=== PATIENT | male | born 1965 | race Caucasian/White ===

== ENCOUNTER 2016-08-16 18:54 | Emergency (ER) | payer OTHER ==
[2016-08-16 19:17] VITALS: BP 149/90
[2016-08-16] MEDS ORDERED: Ketorolac 60 MG/2 ML SDV IM ONE (19:25)
[2016-08-16] MEDS ORDERED: Acetaminophen/oxyCODONE 325-5 MG Tab PO ONE (19:25)
[2016-08-16] MEDS ORDERED: cefTRIAXone 1 GM, Lidocaine 1% 2.1 ML IM ONE ×2 (19:26)
[2016-08-16] MEDS ORDERED: Lidocaine 4% Top Soln 4 ML LTA Syringe TOP ONE (19:26)
--- NOTE | 2016-08-16 19:33 | EDM.PDOC ---
ED HPI GENERAL MEDICAL PROBLEM - General Chief Complaint: ENT Problem Stated Complaint: TOOTHACHE Time Seen by Provider: 08/16/16 19:27 Source of Information: Reports: Patient History Limitations: Reports: No Limitations - History of Present Illness INITIAL COMMENTS - FREE TEXT/NARRATIVE: pt has a broken off tooth on the left lower area. The gum is quite swollen but does not look like a abcess that is drainable. The pt is very uncomfortable. Onset: Gradual Duration: Day(s):, Getting Worse Location: Reports: Face, Other ( pt does have swelling on thr left side of his face. ) Associated Symptoms: Reports: Other ( severe pain in left lower jaw. ) Oral/Mouth Pain Score (Numeric/FACES): 9 - Related Data Allergies Allergy/AdvReac Type Severity Reaction Status Date / Time ibuprofen [From Motrin] Allergy Unknown Difficulty Verified 08/16/16 19:06 Breathing morphine Allergy Unknown Swelling Verified 08/16/16 19:06 Home Meds: Home Meds Multivitamin [Multivitamins] 1 each PO DAILY 08/16/16 [History] Past Medical History Cardiovascular History: Reports: [place] Musculoskeletal History: Reports: Fracture Other Musculoskeletal History: fx wrist elbow forearm both lower legs Neurological History: Reports: Head Trauma Psychiatric History: Reports: Addiction Oncologic (Cancer) History: Reports: Non-Hodgkin's Lymphoma - Infectious Disease History Infectious Disease History: Reports: C-Difficile, Measles, Mumps - Past Surgical History HEENT Surgical History: Reports: Other (See Below) Other HEENT Surgeries/Procedures: eye surgery to remove glass. T and A. Uvula removed. Part of back of throat. GI Surgical History: Reports: Bariatric Procedure, Cholecystectomy, Other (See Below) Other GI Surgeries/Procedures: Part of bowel removed. Musculoskeletal Surgical History: Reports: Knee Replacement Social & Family History - Tobacco Use Smoking Status *Q: Current Every Day Smoker Years of Tobacco use: 3 Packs/Tins Daily: 0.5 Used Tobacco, but Quit: No Month Tobacco Last Used: september Second Hand Smoke Exposure: No - Caffeine Use Caffeine Use: Reports: Coffee, Tea Caffeine Use Comment: unable to access - Alcohol Use Days Per Week of Alcohol Use: 0 - Recreational Drug Use Recreational Drug Use: No ED ROS ENT - Review of Systems Review Of Systems: See Below Constitutional: Reports: Decreased Appetite HEENT: Reports: Dental Pain Respiratory: Reports: No Symptoms Cardiovascular: Reports: No Symptoms Endocrine: Reports: No Symptoms GI/Abdominal: Reports: No Symptoms : Reports: No Symptoms Musculoskeletal: Reports: No Symptoms Skin: Reports: No Symptoms ED EXAM, ENT - Physical Exam Exam: See Below Text/Narrative:: pt arrived with severe pain in the left lower gum line. He has a small root that still remains. Exam Limited By: No Limitations General Appearance: Alert, Moderate Distress Ears: Normal TMs Nose: Normal Inspection Mouth/Throat: Dental Abcess, Other (pt has a small root that remains on the left lower area. ) Head: Atraumatic Course - Vital Signs Last Recorded V/S: Last Vital Signs Temp 36.8 C 08/16/16 19:16 Pulse 85 08/16/16 19:16 Resp 20 08/16/16 19:16 BP 149/90 H 08/16/16 19:16 Pulse Ox 97 08/16/16 19:16 - Orders/Labs/Meds Orders: Active Orders 24 hr Category Date Time Status Lidocaine 4% Top Soln Med 08/16/16 19:26 Once 4 ml TOP ONETIME ONE Medication Orders Lidocaine (Lidocaine 4% Top Soln) 4 ml TOP ONETIME ONE Stop: 08/16/16 19:27 Meds: Medications Generic Name Dose Route Start Last Admin Trade Name Freq PRN Reason Stop Dose Admin Lidocaine 4 ml 08/16/16 19:26 Lidocaine 4% Top Soln TOP 08/16/16 19:27 ONETIME ONE Discontinued Medications Generic Name Dose Route Start Last Admin Trade Name Freq PRN Reason Stop Dose Admin Ceftriaxone Sodium 1 gm/ 0 gm 08/16/16 19:26 Lidocaine HCl 2.1 ml IM 08/16/16 19:27 ONETIME ONE Ketorolac Tromethamine 60 mg 08/16/16 19:25 Toradol IM 08/16/16 19:26 ONETIME ONE Oxycodone/Acetaminophen 1 tab 08/16/16 19:25 Percocet 325-5 Mg PO 08/16/16 19:26 ONETIME ONE - Re-Assessments/Exams Free Text/Narrative Re-Assessment/Exam: 08/16/16 19:32 pt was given torodol and percocet. Because this is a abcess he was given rocephen 1 gm im. 4% lidocaine was applied on a pack and he will also use this for pain relieve. Departure - Departure Time of Disposition: 19:33 Disposition: Home, Self-Care 01 Condition: fair Clinical Impression: Dental abscess - Discharge Information Forms: ED Department Discharge Care Plan Goals: irrigate the mouth frequently to bring the abcess to a head. naprosyn 500mg bid, percocet 5/325 1tab q6h prn for pain, clindomycin 300mg bid, dental appt Friday at [facility]. - My Orders Last 24 Hours: My Active Orders 08/16/16 19:26 Lidocaine 4% Top Soln 4 ml TOP ONETIME ONE - Assessment/Plan Last 24 Hours: My Active Orders 08/16/16 19:26 Lidocaine 4% Top Soln 4 ml TOP ONETIME ONE
[2016-08-16] MEDS ORDERED: Lidocaine 4% Top Soln 50 ML Bottle MUCMEM ONE (19:52)
== END 2016-08-16 20:16 | disposition home or self-care (01) ==
LOC: JP.ED 18:54
DX: K04.7 Periapical abscess without sinus (principal); I25.2 Old myocardial infarction; F17.210 Nicotine dependence, cigarettes, uncomplicated; Z85.72 Personal history of non-Hodgkin lymphomas; Z90.49 Acquired absence of other specified parts of digestive tract; Z98.84 Bariatric surgery status; Z96.659 Presence of unspecified artificial knee joint; Z98.890 Other specified postprocedural states; Z79.899 Other long term (current) drug therapy; Z88.5 Allergy status to narcotic agent; Z88.8 Allergy status to other drugs, medicaments and biological substances
CPT/HCPCS: 96372; 99283; A9270; J0696; J1885

== ENCOUNTER 2019-07-24 20:06 | Emergency (ER) | payer MEDICAID, OTHER ==
[2019-07-24 20:31] VITALS: BP 164/93; PULSE 83
--- NOTE | 2019-07-24 20:31 | EDM.PDOC ---
ED HPI GENERAL MEDICAL PROBLEM - General Chief Complaint: Abdominal Pain Stated Complaint: ABD PAIN,VOMITING Time Seen by Provider: 07/24/19 20:23 Source of Information: Reports: Patient, RN Notes Reviewed History Limitations: Reports: No Limitations - History of Present Illness INITIAL COMMENTS - FREE TEXT/NARRATIVE: 54-year-old gentleman presents emergency department with a complaint of nausea, he has a known history of gastric bypass states his been ill for about 3 days he has been able to drink Gatorade but the nausea is causing troubles hard for him to get food down. No fevers he has had some diarrhea no shortness of breath or chest pain Bilateral Abdominal Pain Score (Numeric/FACES): 4 - Related Data Allergies Allergy/AdvReac Type Severity Reaction Status Date / Time ibuprofen [From Motrin] Allergy Unknown Difficulty Verified 07/24/19 20:13 Breathing morphine Allergy Unknown Swelling Verified 07/24/19 20:13 Home Meds: Home Meds Multivitamin [Multivitamins] 1 each PO DAILY 08/16/16 [History] Past Medical History Cardiovascular History: Reports: CAD, [place] Musculoskeletal History: Reports: Fracture Other Musculoskeletal History: fx wrist elbow forearm both lower legs Neurological History: Reports: Concussion, Head Trauma Psychiatric History: Reports: Addiction Oncologic (Cancer) History: Reports: Non-Hodgkin's Lymphoma - Infectious Disease History Infectious Disease History: Reports: Chicken Pox, Measles, Mumps, Scarlet Fever - Past Surgical History HEENT Surgical History: Reports: Other (See Below) Other HEENT Surgeries/Procedures: eye surgery to remove glass. T and A. Uvula removed. Part of back of throat. GI Surgical History: Reports: Bariatric Procedure, Cholecystectomy, Other (See Below) Other GI Surgeries/Procedures: Part of bowel removed. Musculoskeletal Surgical History: Reports: Knee Replacement Social & Family History - Family History Family Medical History: Noncontributory - Tobacco Use Smoking Status *Q: Current Every Day Smoker Years of Tobacco use: 41 Packs/Tins Daily: 0.5 - Caffeine Use Caffeine Use: Reports: Coffee, Energy Drinks, Soda, Tea Caffeine Use Comment: unable to access - Recreational Drug Use Recreational Drug Use: No ED ROS GENERAL - Review of Systems Review Of Systems: See Below Constitutional: Reports: No Symptoms HEENT: Reports: No Symptoms Respiratory: Reports: No Symptoms Cardiovascular: Reports: No Symptoms GI/Abdominal: Reports: Diarrhea, Nausea, Vomiting. Denies: Abdominal Pain ED EXAM, GI/ABD - Physical Exam Exam: See Below Exam Limited By: No Limitations General Appearance: Alert, WD/WN, No Apparent Distress Respiratory/Chest: No Respiratory Distress, Lungs Clear, Normal Breath Sounds, No Accessory Muscle Use, Chest Non-Tender Cardiovascular: Regular Rate, Rhythm, No Murmur GI/Abdominal Exam: Normal Bowel Sounds, Soft, Non-Tender, No Organomegaly, No Distention, No Mass Course - Vital Signs Last Recorded V/S: Last Vital Signs Temp 97.2 F 07/24/19 20:14 Pulse 83 07/24/19 20:14 Resp 14 07/24/19 20:14 BP 164/93 H 07/24/19 20:14 Pulse Ox 99 07/24/19 20:14 - Orders/Labs/Meds Orders: Active Orders 24 hr Category Date Time Status COMPREHENSIVE METABOLIC PN,CMP [CHEM] Urgent Lab 07/24/19 20:50 Received LACTIC ACID [CHEM] Urgent Lab 07/24/19 20:50 Received TROPONIN I [CHEM] Urgent Lab 07/24/19 20:50 Received UA W/MICROSCOPIC [URIN] Urgent Lab 07/24/19 20:28 Ordered Labs: Laboratory Tests 07/24/19 Range/Units 20:50 WBC 7.2 (4.5-11.0) K/uL RBC 5.21 (4.30-5.90) M/uL Hgb 14.8 (12.0-15.0) g/dL Hct 43.8 (40.0-54.0) % MCV 84 (80-98) fL MCH 28 (27-31) pg MCHC 34 (32-36) % Plt Count 172 (150-400) K/uL Neut % (Auto) 61 (36-66) % Lymph % (Auto) 27 (24-44) % Coles % (Auto) 8 H (2-6) % Eos % (Auto) 4 (2-4) % Baso % (Auto) 0 (0-1) % Meds: Medications Discontinued Medications Generic Name Dose Route Start Last Admin Trade Name Freq PRN Reason Stop Dose Admin Ondansetron HCl 4 mg 07/24/19 20:38 07/24/19 20:45 Zofran Odt PO 07/24/19 20:39 4 mg ONETIME ONE Administration Departure - Departure Time of Disposition: 21:31 Disposition: Home, Self-Care 01 Condition: Fair Clinical Impression: Gastroenteritis - Discharge Information Instructions: Nausea and Vomiting, Adult, [id number] Referrals: PCP,None [Primary Care Provider] - Forms: ED Department Discharge, ED Return to Work/School Form Sepsis Event Note - Evaluation Sepsis Screening Result: No Definite Risk - Focused Exam Vital Signs: Vital Signs Temp Pulse Resp BP Pulse Ox 07/24/19 20:14 97.2 F 83 14 164/93 H 99 Date Exam was Performed: 07/24/19 Time Exam was Performed: 21:29 - My Orders Last 24 Hours: My Active Orders 07/24/19 20:28 UA W/MICROSCOPIC [URIN] Urgent 07/24/19 20:50 COMPREHENSIVE METABOLIC PN,CMP [CHEM] Urgent LACTIC ACID [CHEM] Urgent TROPONIN I [CHEM] Urgent - Assessment/Plan Last 24 Hours: My Active Orders 07/24/19 20:28 UA W/MICROSCOPIC [URIN] Urgent 07/24/19 20:50 COMPREHENSIVE METABOLIC PN,CMP [CHEM] Urgent LACTIC ACID [CHEM] Urgent TROPONIN I [CHEM] Urgent Plan: Assessment Acuity = acute Site and laterality = gastroenteritis Etiology = probably related to foodborne illness Manifestations = nausea and vomiting Location of injury = Home Lab values = CBC unremarkable unfortunately the electrolyte sample was hemolyzed and he declined any further blood work Plan He had good improvement with Zofran provided prescription written for Zofran 4 mg ODT 1 tab p.o. 3 times daily PRN total #10 he will continue to push fluids follow-up primary care 3 to 5 days if not better This note was dictated using [facility] voice recognition software please call with any questions on syntax or grammar.
[2019-07-24] MEDS ORDERED: Ondansetron 4 MG Tab.DIS PO ONE (20:38)
== END 2019-07-24 21:36 | disposition home or self-care (01) ==
LOC: JP.ED 20:06
DX: K52.9 Noninfective gastroenteritis and colitis, unspecified (principal); I25.10 Atherosclerotic heart disease of native coronary artery without angina pectoris; I25.2 Old myocardial infarction; F17.210 Nicotine dependence, cigarettes, uncomplicated; Z90.49 Acquired absence of other specified parts of digestive tract; Z98.84 Bariatric surgery status; Z88.5 Allergy status to narcotic agent; Z88.6 Allergy status to analgesic agent
CPT/HCPCS: 36415; 85025; 99283; 99284; A9270

== ENCOUNTER 2020-03-21 11:35 | Emergency (ER) | payer OTHER ==
[2020-03-21 14:14] VITALS: BP 161/79; PULSE 89
--- NOTE | 2020-03-21 15:00 | EDM.PDOC ---
ED HPI GENERAL MEDICAL PROBLEM - General Chief Complaint: Lower Extremity Injury/Pain Stated Complaint: LEFT FOOT IS SORE AND PAINFUL Time Seen by Provider: 03/21/20 14:00 Source of Information: Reports: Patient History Limitations: Reports: No Limitations - History of Present Illness INITIAL COMMENTS - FREE TEXT/NARRATIVE: 54-year-old male with left foot pain since kicking an end table by accident 3 nights ago. He was at work today but was unable to bear weight so was sent in to have his foot checked. Onset: Sudden Duration: Day(s): (3 days ago) Location: Reports: Lower Extremity, Left Associated Symptoms: Reports: No Other Symptoms Left Feet Pain Score (Numeric/FACES): 8 - Related Data Allergies Allergy/AdvReac Type Severity Reaction Status Date / Time ibuprofen [From Motrin] Allergy Unknown Difficulty Verified 07/24/19 20:13 Breathing morphine Allergy Unknown Swelling Verified 07/24/19 20:13 Home Meds: Home Meds NK [No Known Home Meds] 03/21/20 [History] Past Medical History Cardiovascular History: Reports: CAD, [place] Musculoskeletal History: Reports: Fracture Other Musculoskeletal History: fx wrist elbow forearm both lower legs Neurological History: Reports: Concussion, Head Trauma Psychiatric History: Reports: Addiction Oncologic (Cancer) History: Reports: Non-Hodgkin's Lymphoma - Infectious Disease History Infectious Disease History: Reports: Chicken Pox, Measles, Mumps, Scarlet Fever - Past Surgical History HEENT Surgical History: Reports: Other (See Below) Other HEENT Surgeries/Procedures: eye surgery to remove glass. T and A. Uvula removed. Part of back of throat. GI Surgical History: Reports: Bariatric Procedure, Cholecystectomy, Other (See Below) Other GI Surgeries/Procedures: Part of bowel removed. Musculoskeletal Surgical History: Reports: Knee Replacement Other Musculoskeletal Surgeries/Procedures:: surgery on arms, legs, back, elbow Social & Family History - Family History Family Medical History: No Pertinent Family History - Caffeine Use Caffeine Use: Reports: Coffee Caffeine Use Comment: unable to access - Recreational Drug Use Recreational Drug Use: No Review of Systems - Review of Systems Review Of Systems: See Below Constitutional: Denies: Fever Respiratory: Reports: No Symptoms Cardiovascular: Reports: No Symptoms Musculoskeletal: Reports: Other (Significant left foot pain, especially with palpation or weightbearing) Skin: Reports: Erythema (Erythema and bruising have developed on the top of the left foot) Neurological: Denies: Paresthesia ED EXAM, GENERAL - Physical Exam Exam: See Below Exam Limited By: No Limitations General Appearance: Alert, No Apparent Distress Head: Atraumatic Respiratory/Chest: No Respiratory Distress Extremities: Other (Exam is otherwise limited to the left foot. He is nontender around the ankle and heel. On the top of the foot there is erythema and bruising with some pitting edema. Is exquisitely tender to palpation through the bruised area into the middle toe, no deformity.) Neurological: Alert, Oriented Course - Vital Signs Last Recorded V/S: Last Vital Signs Temp 96.8 F L 03/21/20 14:14 Pulse 89 03/21/20 14:14 Resp 16 03/21/20 14:14 BP 161/79 H 03/21/20 14:14 Pulse Ox 99 03/21/20 14:14 - Orders/Labs/Meds Orders: Active Orders 24 hr Category Date Time Status Foot Comp Min 3V Lt [CR] Stat Exams 03/21/20 14:20 Taken - Re-Assessments/Exams Free Text/Narrative Re-Assessment/Exam: 03/21/20 15:22 A foot x-ray was obtained which was negative for fracture. A 3 inch Michael wrap was applied around the foot, a note for work to be off of the next few days and he can continue using the walking boot and crutches as needed. Recheck in 3 to 4 days if not improving. Departure - Departure Time of Disposition: 15:09 Disposition: Home, Self-Care 01 Clinical Impression: Contusion of left foot, initial encounter - Discharge Information Instructions: Contusion, [id number] Referrals: PCP,None [Primary Care Provider] - Forms: ED Department Discharge Care Plan Goals: Wear Michael wrap to reduce swelling, elevate and ice if able for the next 2 days. Increase activity as tolerated with the assistance of a walking boot. Recheck next week with podiatry at the clinic if not improving satisfactorily. A regular dose of ibuprofen would be helpful. Return to the emergency room if worsening or concerns. Sepsis Event Note (ED) - Evaluation Sepsis Screening Result: No Definite Risk - Focused Exam Vital Signs: Vital Signs Temp Pulse Resp BP Pulse Ox 03/21/20 14:14 96.8 F L 89 16 161/79 H 99 03/21/20 14:13 96.8 F L 89 16 161/79 H 99 - My Orders Last 24 Hours: My Active Orders 03/21/20 14:20 Foot Comp Min 3V Lt [CR] Stat - Assessment/Plan Last 24 Hours: My Active Orders 03/21/20 14:20 Foot Comp Min 3V Lt [CR] Stat
--- NOTE | 2020-03-21 15:39 | CR ---
Foot Comp Min 3V Lt CLINICAL HISTORY: Injury FINDINGS: There is no acute fracture or dislocation within the foot. No destructive changes are present. IMPRESSION: No acute bony process.
== END 2020-03-21 15:10 | disposition home or self-care (01) ==
LOC: JP.ED 11:35
DX: S90.32XA Contusion of left foot, initial encounter (principal); I25.10 Atherosclerotic heart disease of native coronary artery without angina pectoris; I25.2 Old myocardial infarction; Z88.6 Allergy status to analgesic agent; Z88.5 Allergy status to narcotic agent; W22.8XXA Striking against or struck by other objects, initial encounter
CPT/HCPCS: 73630-26-LT; 73630-LT; 99282; 99283-25

== ENCOUNTER 2020-03-23 23:40 | Emergency (ER) | payer OTHER ==
[2020-03-24] MEDS ORDERED: cefTRIAXone 1 GM in Sodium Chloride 0.9% 50 ML IV ONE (00:04)
[2020-03-24] MEDS ORDERED: Sodium Chloride 0.9% 10 ML Syringe FLUSH PRN (00:04)
[2020-03-24] MEDS ORDERED: Bacitracin Oint 1 GM U/D Packet TOP ONE (00:06)
--- NOTE | 2020-03-24 00:09 | EDM.PDOC ---
<Sofía Oliveira - Last Filed: 03/24/20 00:29> ED HPI GENERAL MEDICAL PROBLEM - General Chief Complaint: Skin Complaint Stated Complaint: INFECTION IN LEFT FOOT? Time Seen by Provider: 03/24/20 00:06 Source of Information: Reports: Patient History Limitations: Reports: No Limitations - History of Present Illness INITIAL COMMENTS - FREE TEXT/NARRATIVE: pt kicked a coffee table 2 nites ago, He was seen here and xrayed. He did open the skin between the small toe and the next. He now has ared hot foot that is quite tender. Onset: Gradual Duration: Hour(s): Location: Reports: Lower Extremity, Left Associated Symptoms: Reports: Fever/Chills - Related Data Allergies Allergy/AdvReac Type Severity Reaction Status Date / Time ibuprofen [From Motrin] Allergy Unknown Difficulty Verified 03/23/20 23:50 Breathing morphine Allergy Unknown Swelling Verified 03/23/20 23:50 Home Meds: Home Meds Acetaminophen [Tylenol] 325 mg PO Q4H PRN 03/24/20 [History] Acetaminophen/Pyrilamine/Caff [Midol Caplet] 1 each PO BID PRN 03/24/20 [History] Hydrocodone/Acetaminophen [Hydrocodon-Acetaminophen 5-325] 1 each PO Q6H PRN 03/24/20 [History] Past Medical History HEENT History: Reports: Impaired Vision Cardiovascular History: Reports: CAD, [place] Musculoskeletal History: Reports: Fracture Other Musculoskeletal History: fx wrist elbow forearm both lower legs Neurological History: Reports: Concussion, Head Trauma Psychiatric History: Reports: Addiction Oncologic (Cancer) History: Reports: Non-Hodgkin's Lymphoma - Infectious Disease History Infectious Disease History: Reports: Chicken Pox, Measles, Mumps, Scarlet Fever - Past Surgical History HEENT Surgical History: Reports: Other (See Below) Other HEENT Surgeries/Procedures: eye surgery to remove glass. T and A. Uvula removed. Part of back of throat. GI Surgical History: Reports: Bariatric Procedure, Cholecystectomy, Other (See Below) Other GI Surgeries/Procedures: Part of bowel removed. Musculoskeletal Surgical History: Reports: Knee Replacement Other Musculoskeletal Surgeries/Procedures:: surgery on arms, legs, back, elbow Social & Family History - Family History Family Medical History: No Pertinent Family History - Tobacco Use Tobacco Use Status *Q: Current Every Day Tobacco User Years of Tobacco use: 40 Packs/Tins Daily: 0.5 - Caffeine Use Caffeine Use: Reports: Coffee Caffeine Use Comment: unable to access - Recreational Drug Use Recreational Drug Use: No ED ROS GENERAL - Review of Systems Review Of Systems: See Below Constitutional: Reports: Chills HEENT: Reports: No Symptoms Respiratory: Reports: No Symptoms Cardiovascular: Reports: No Symptoms Endocrine: Reports: No Symptoms GI/Abdominal: Reports: No Symptoms : Reports: No Symptoms Musculoskeletal: Reports: Other ( swollen hot left foot. ) ED EXAM, SKIN/RASH Exam: See Below Text/Narrative:: pt arrived with a hot swollen left foot. He injured the foot 2 nites ago. Exam Limited By: No Limitations General Appearance: Alert, Anxious, Moderate Distress Ears: Normal TMs Nose: Normal Inspection Throat/Mouth: Normal Inspection Head: Atraumatic Respiratory/Chest: No Respiratory Distress Cardiovascular: Regular Rate, Rhythm GI/Abdominal: Soft, Non-Tender (Male) Exam: Deferred Rectal (Males) Exam: Deferred Back Exam: Normal Inspection Extremities: Other ( left foot is swollen, red and hot. This is quite tender. ) Course - Re-Assessments/Exams Free Text/Narrative Re-Assessment/Exam: 03/24/20 00:14 foot was soaked and dressed with bacatracin, He was given rocephen 1 gm iv, Departure - Departure Time of Disposition: 00:14 Disposition: Home, Self-Care 01 Condition: Fair Clinical Impression: Cellulitis - Discharge Information Instructions: Cellulitis, Adult, [id number] Referrals: PCP,None [Primary Care Provider] - Forms: ED Department Discharge Care Plan Goals: soak foot two (2) times a day in warm soapy water followed by a cool pack, elevate the foot, return to emergency room tomorrow for another dose of iv rocephen. IV can be removed after that. After that start Keflex 500mg po four (4) times a day, tylenol for pain. return to clinic or ER if foot looks worse.norco 5/325 q6h prn for pain #6 Sepsis Event Note (ED) - Evaluation Sepsis Screening Result: Possible Sepsis Risk <PeggyGeorge Ingrid - Last Filed: 03/24/20 22:01> Course - Vital Signs Last Recorded V/S: Last Vital Signs Temp 35.6 C L 03/23/20 23:54 Pulse 103 H 03/23/20 23:54 Resp 20 03/23/20 23:54 BP 168/97 H 03/23/20 23:54 Pulse Ox 99 03/23/20 23:54 - Orders/Labs/Meds Orders: Active Orders 24 hr Category Date Time Status Saline Lock Insert [OM.PC] Routine Oth 03/24/20 00:04 Ordered Meds: Medications Discontinued Medications Generic Name Dose Route Start Last Admin Trade Name Freq PRN Reason Stop Dose Admin Hydrocodone Bitart/Acetaminophen 1 tab 03/24/20 00:30 03/24/20 00:34 [place] 325-5 Mg PO 03/24/20 00:31 1 tab ONETIME ONE Administration Bacitracin 1 dose 03/24/20 00:06 03/24/20 00:16 Bacitracin Oint 1 Gm TOP 03/24/20 00:07 1 dose ONETIME ONE Administration Ceftriaxone Sodium 1 gm/ 50 mls @ 100 mls/hr 03/24/20 00:04 03/24/20 00:16 Sodium Chloride IV 03/24/20 00:33 100 mls/hr ONETIME ONE Administration Sodium Chloride 10 ml 03/24/20 00:04 03/24/20 00:16 Saline Flush FLUSH 10 ml ASDIRECTED PRN Administration Keep Vein Open
[2020-03-24] MEDS ORDERED: Acetaminophen/HYDROcodone 325-5 MG Tab PO ONE (00:30)
[2020-03-24 00:53] VITALS: BP 168/97; PULSE 103
== END 2020-03-24 01:04 | disposition home or self-care (01) ==
LOC: JP.ED 23:40
DX: L03.116 Cellulitis of left lower limb (principal); I25.10 Atherosclerotic heart disease of native coronary artery without angina pectoris; I25.2 Old myocardial infarction; F17.210 Nicotine dependence, cigarettes, uncomplicated; Z88.6 Allergy status to analgesic agent; Z88.5 Allergy status to narcotic agent
CPT/HCPCS: 96365; 99283; 99284; A9270; J0696; J7050

== ENCOUNTER 2020-03-24 20:46 | Emergency (ER) | payer OTHER ==
--- NOTE | 2020-03-24 21:51 | EDM.PDOC ---
ED HPI GENERAL MEDICAL PROBLEM - General Chief Complaint: Skin Complaint Stated Complaint: LEFT FOOT Time Seen by Provider: 03/24/20 21:41 Source of Information: Reports: Patient History Limitations: Reports: No Limitations - History of Present Illness INITIAL COMMENTS - FREE TEXT/NARRATIVE: Patient presents for evaluation of an infection in the left foot. He injured the foot 8 days ago on evening the . He accidentally ran his foot into the edge of a table. Pain and swelling had persisted and he was seen in the emergency department on the and discharged home. In the last 24 hours the foot has become red and swollen and painful in the region of the third fourth and fifth toes. He was given a single dose of ceftriaxone at an emergency department visit yesterday and returned tonight for his subsequent dose. The foot has become more painful and red today and the redness is extending up the foot somewhat along with development of a red streak on the leg. He was hospitalized in the past for some type of serious skin infection and he was worried that this current infection might develop into something very bad. Onset: Gradual Duration: Week(s): (1) Location: Reports: Lower Extremity, Left Quality: Reports: Ache, Burning, Dull, Sharp, Stabbing, Throbbing Severity: Severe Improves with: Reports: None Worsens with: Reports: Movement Treatments PIPE INSTALLER: Reports: Acetaminophen, Other (see below) Other Treatments PIPE INSTALLER: midol and vicodin - Related Data Allergies Allergy/AdvReac Type Severity Reaction Status Date / Time ibuprofen [From Motrin] Allergy Unknown Difficulty Verified 03/23/20 23:50 Breathing morphine Allergy Unknown Swelling Verified 03/23/20 23:50 Home Meds: Home Meds Acetaminophen [Tylenol] 325 mg PO Q4H PRN 03/24/20 [History] Acetaminophen/Pyrilamine/Caff [Midol Caplet] 1 each PO BID PRN 03/24/20 [History] Hydrocodone/Acetaminophen [Hydrocodon-Acetaminophen 5-325] 1 each PO Q6H PRN 03/24/20 [History] Past Medical History HEENT History: Reports: Impaired Vision Cardiovascular History: Reports: CAD, VA Musculoskeletal History: Reports: Fracture Other Musculoskeletal History: fx wrist elbow forearm both lower legs Neurological History: Reports: Concussion, Head Trauma Psychiatric History: Reports: Addiction Oncologic (Cancer) History: Reports: Non-Hodgkin's Lymphoma Other Dermatologic History: currently being treated outpatient for cellulitis of left top foot with IV antibiotics - Infectious Disease History Infectious Disease History: Reports: Chicken Pox, Measles, Mumps, Scarlet Fever - Past Surgical History HEENT Surgical History: Reports: Other (See Below) Other HEENT Surgeries/Procedures: eye surgery to remove glass. T and A. Uvula removed. Part of back of throat. GI Surgical History: Reports: Bariatric Procedure, Cholecystectomy, Other (See Below) Other GI Surgeries/Procedures: Part of bowel removed. Musculoskeletal Surgical History: Reports: Knee Replacement Other Musculoskeletal Surgeries/Procedures:: surgery on arms, legs, back, elbow Social & Family History - Family History Family Medical History: No Pertinent Family History - Tobacco Use Tobacco Use Status *Q: Current Every Day Tobacco User Years of Tobacco use: 40 Packs/Tins Daily: 0.5 - Caffeine Use Caffeine Use: Reports: Coffee Caffeine Use Comment: unable to access - Recreational Drug Use Recreational Drug Use: No ED ROS GENERAL - Review of Systems Review Of Systems: Comprehensive ROS is negative, except as noted in HPI. ED EXAM, SKIN/RASH Exam: See Below Exam Limited By: Physical Impairment General Appearance: Alert Respiratory/Chest: Respiratory Distress Cardiovascular: Regular Rate, Rhythm, Tachycardia Extremities: Redness (The dorsal surface of the left foot is profoundly red with in a blue marker pen zone. The most intense color is in the distal metatarsals adjacent to the fifth and fourth toes. Palpation of any part of the foot produces exquisite pain. There is proximal streaking on the medial aspect of the left leg. The popliteal fossa is nontender. The inguinal crease is nontender.) Psychiatric: Anxious Skin: Erythema Location, Skin: Lower Extremity, Left Associated features: Warmth, Tenderness, Swelling. No: Induration, Weeping Lymphatic: No Adenopathy Course - Vital Signs Last Recorded V/S: Last Vital Signs Temp 36.4 C 03/25/20 01:23 Pulse 107 H 03/25/20 01:23 Resp 22 H 03/25/20 01:23 BP 159/98 H 03/25/20 01:23 Pulse Ox 98 03/25/20 01:23 - Orders/Labs/Meds Orders: Active Orders 24 hr Category Date Time Status Foot Comp Min 3V Lt [CR] Stat Exams 03/24/20 22:03 Taken Labs: Laboratory Tests 03/24/20 03/24/20 Range/Units 22:45 22:45 WBC 17.4 H (4.5-11.0) K/uL RBC 5.10 (4.30-5.90) M/uL Hgb 13.7 (12.0-15.0) g/dL Hct 42.8 (40.0-54.0) % MCV 84 (80-98) fL MCH 27 (27-31) pg MCHC 32 (32-36) % Plt Count 224 (150-400) K/uL Neut % (Auto) 84 H (36-66) % Lymph % (Auto) 8 L (24-44) % [place] % (Auto) 7 H (2-6) % Eos % (Auto) 0 L (2-4) % Baso % (Auto) 0 (0-1) % Sodium 139 L (140-148) mmol/L Potassium 4.0 (3.6-5.2) mmol/L Chloride 104 (100-108) mmol/L Carbon Dioxide 23 (21-32) mmol/L Anion Gap 16.0 H (5.0-14.0) mmol/L BUN 21 H (7-18) mg/dL Creatinine 1.0 (0.8-1.3) mg/dL Est Cr Clr Drug Dosing 82.48 mL/min Estimated GFR (MDRD) > 60 (>60) Glucose 108 H (74-106) mg/dL Calcium 8.8 (8.5-10.1) mg/dL Total Bilirubin 0.5 (0.2-1.0) mg/dL AST 27 (15-37) U/L ALT 34 (12-78) U/L Alkaline Phosphatase 165 H (46-116) U/L C-Reactive Protein 3.75 H (0.0-0.3) mg/dL Total Protein 7.3 (6.4-8.2) g/dL Albumin 3.4 (3.4-5.0) g/dL Globulin 3.9 H (2.3-3.5) g/dL Albumin/Globulin Ratio 0.9 L (1.2-2.2) Meds: Medications Discontinued Medications Generic Name Dose Route Start Last Admin Trade Name Freq PRN Reason Stop Dose Admin Fentanyl 50 mcg 03/25/20 00:14 03/25/20 00:18 Sublimaze IVPUSH 03/25/20 00:15 50 mcg ONETIME ONE Administration Fentanyl 100 mcg 03/25/20 01:15 03/25/20 01:19 Sublimaze IVPUSH 03/25/20 01:16 100 mcg ONETIME ONE Administration Piperacillin Sod/Tazobactam 100 mls @ 100 mls/hr 03/25/20 00:07 03/25/20 00:14 Sod 4.5 gm/ Sodium Chloride IV 03/25/20 01:06 100 mls/hr ONETIME ONE Administration - Re-Assessments/Exams Free Text/Narrative Re-Assessment/Exam: 03/25/20 06:12 Patient appears quite uncomfortable but states that he does not like taking pain medication. I reviewed findings with him including the need to come in the hospital given his lack of progress with the 2 doses of ceftriaxone. I contacted the on-call physician who discussed the case with me. She was going to review with surgery franchise business consultant and then get back to me. She eventually came straightaway to the emergency department. After discussing things with the patient however he is adamant that he does not want to be in the hospital because it will result in a huge bill that the [place] system will not pay. I told him that I am familiar with the [place] system and what he is saying is correct. He was given initially a 50 mcg fentanyl dose followed later by a 100 mcg IV dose of the same medication. After extensive discussions intubates, we will order a single dose of Zosyn 4.5 g and the patient will be discharged. He is going to contact his primary care team next week or return here if feeling worse in any way. At time of discharge he then stated that he likely would drive to the [place] emergency department on Friday, 25 March for evaluation and hopefully admission. Departure - Departure Time of Disposition: 01:38 Disposition: Home, Self-Care 01 Clinical Impression: Cellulitis of foot, left, Abscess, Lymphangitis - Discharge Information Instructions: Skin Abscess, Cellulitis, Adult, Lymphangitis, Adult Referrals: PCP,None [Primary Care Provider] - Forms: ED Department Discharge Additional Instructions: You were given a dose of ceftriaxone as well has piperacillin/tazobactam antibiotics in the emergency department. Recommendation is that you go to the [facility] in [place] and be evaluated in the emergency department to be admitted for treatment of your foot infection and possible drainage of an abscess. Elevate the foot as much as you can as that will reduce the pain. Continue usual medications for comfort. Sepsis Event Note (ED) - Evaluation Sepsis Screening Result: Possible Sepsis Risk - Focused Exam Vital Signs: Vital Signs Temp Pulse Resp BP Pulse Ox 03/25/20 01:23 36.4 C 107 H 22 H 159/98 H 98 03/25/20 00:31 36.4 C 104 H 20 140/93 H 99 03/24/20 22:30 122 H 20 146/96 H 100 03/24/20 22:00 102 H 102 H 136/88 96 03/24/20 21:40 36.2 C 100 16 96/55 L 100 03/24/20 20:56 36.6 C 99 20 95/65 98 - My Orders Last 24 Hours: My Active Orders 03/24/20 22:03 Foot Comp Min 3V Lt [CR] Stat - Assessment/Plan Last 24 Hours: My Active Orders 03/24/20 22:03 Foot Comp Min 3V Lt [CR] Stat
--- NOTE | 2020-03-24 23:57 | PCM.PN ---
- General Info Date of Service: 03/24/20 Admission Dx/Problem (Free Text): Patient declines admission to [facility]. He says he will only be admitted to the OR because of cost. He is willing to be discharged on Abx, but will not be admitted. He understands that he should have surgery on his foot, and that he could lose his foot due to infection, become septic or possibly . He says he will seek admission only at the OR - Review of Systems General: Reports: No Symptoms HEENT: Reports: No Symptoms Pulmonary: Reports: No Symptoms Cardiovascular: Reports: No Symptoms Gastrointestinal: Reports: No Symptoms Genitourinary: Reports: No Symptoms Musculoskeletal: Reports: Foot Pain Skin: Reports: No Symptoms Neurological: Reports: No Symptoms Psychiatric: Reports: No Symptoms - Patient Data Vitals - Most Recent: Last Vital Signs Temp 36.6 C 03/24/20 20:56 Pulse 99 03/24/20 20:56 Resp 20 03/24/20 20:56 BP 95/65 03/24/20 20:56 Pulse Ox 98 03/24/20 20:56 Weight - Most Recent: 81.647 kg Lab Results Last 24 Hours: Laboratory Results - last 24 hr 03/24/20 03/24/20 Range/Units 22:45 22:45 WBC 17.4 H (4.5-11.0) K/uL RBC 5.10 (4.30-5.90) M/uL Hgb 13.7 (12.0-15.0) g/dL Hct 42.8 (40.0-54.0) % MCV 84 (80-98) fL MCH 27 (27-31) pg MCHC 32 (32-36) % Plt Count 224 (150-400) K/uL Neut % (Auto) 84 H (36-66) % Lymph % (Auto) 8 L (24-44) % [place] % (Auto) 7 H (2-6) % Eos % (Auto) 0 L (2-4) % Baso % (Auto) 0 (0-1) % Sodium 139 L (140-148) mmol/L Potassium 4.0 (3.6-5.2) mmol/L Chloride 104 (100-108) mmol/L Carbon Dioxide 23 (21-32) mmol/L Anion Gap 16.0 H (5.0-14.0) mmol/L BUN 21 H (7-18) mg/dL Creatinine 1.0 (0.8-1.3) mg/dL Est Cr Clr Drug Dosing 82.48 mL/min Estimated GFR (MDRD) > 60 (>60) Glucose 108 H (74-106) mg/dL Calcium 8.8 (8.5-10.1) mg/dL Total Bilirubin 0.5 (0.2-1.0) mg/dL AST 27 (15-37) U/L ALT 34 (12-78) U/L Alkaline Phosphatase 165 H (46-116) U/L C-Reactive Protein 3.75 H (0.0-0.3) mg/dL Total Protein 7.3 (6.4-8.2) g/dL Albumin 3.4 (3.4-5.0) g/dL Globulin 3.9 H (2.3-3.5) g/dL Albumin/Globulin Ratio 0.9 L (1.2-2.2) Sepsis Event Note - Evaluation Sepsis Screening Result: Possible Sepsis Risk - Focused Exam Vital Signs: Vital Signs Temp Pulse Resp BP Pulse Ox 03/24/20 20:56 36.6 C 99 20 95/65 98 - Problem List Review Problem List Initiated/Reviewed/Updated: Yes - My Orders Last 24 Hours: My Active Orders 03/24/20 22:36 CORONAVIRUS COVID-19, CHARLES Stat
[2020-03-25] MEDS ORDERED: Piperacillin/Tazobactam 4.5 GM in Sodium Chloride 0.9% 100 ML IV ONE (00:07)
[2020-03-25] MEDS ORDERED: fentaNYL 100 MCG/2 ML SDV IVPUSH ONE ×2 (00:14→01:15)
[2020-03-25 01:24] VITALS: BP 159/98; PULSE 107
--- NOTE | 2020-03-27 09:30 | CR ---
FOOT LEFT 3 views CLINICAL HISTORY:Left foot cellulitis and abscess FINDINGS:There is some generalized soft tissue swelling is prominent over the forefoot. No subcutaneous or soft tissue air or foreign bodies identified. No osseous lesions are seen. IMPRESSION: SOFT tissue swelling No osseous lesion
== END 2020-03-25 01:54 | disposition home or self-care (01) ==
LOC: JP.ED 20:46
DX: L02.612 Cutaneous abscess of left foot (principal); L03.116 Cellulitis of left lower limb; I25.2 Old myocardial infarction; I25.10 Atherosclerotic heart disease of native coronary artery without angina pectoris; F17.210 Nicotine dependence, cigarettes, uncomplicated; Z88.5 Allergy status to narcotic agent; Z88.6 Allergy status to analgesic agent; Z90.49 Acquired absence of other specified parts of digestive tract
CPT/HCPCS: 36415; 73630-26-LT; 73630-LT; 80053; 85025; 86140; 96365; 96375; 96376; 99283; 99283-25; J2543; J3010; J7050

== ENCOUNTER 2022-11-06 17:06 | Emergency (ER) | payer OTHER ==
[2022-11-06 19:54] LABS: BASOPHILS ABSOLUTE AUTO 0.06 K/uL (0.00-0.10); BASOPHILS PERCENT AUTO 0.5 % (0.1-1.3); EOSINOPHILS ABSOLUTE AUTO 0.08 K/uL (0.00-0.40); EOSINOPHILS PERCENT AUTO 0.6 % (0.0-5.4); HEMATOCRIT 41.9 % (38.4-49.7); HEMOGLOBIN 13.6 g/dL (12.9-16.9); IMMATURE GRAN ABSOLUTE AUTO 0.03 K/uL (0.00-0.23); IMMATURE GRAN PERCENT AUTO 0.2 % (0.0-0.7); LYMPHOCYTES ABSOLUTE AUTO 2.25 K/uL (0.8-3.3); LYMPHOCYTES PERCENT AUTO 17.5 % (11.4-47.7); MEAN CORPUSCULAR HEMOGLOBIN 24.4 pg (31.6-35.5); MEAN CORPUSCULAR HGB CONC 32.5 g/dL (31.6-35.5); MEAN CORPUSCULAR VOLUME 75.1 fL (81.4-99.0); MONOCYTES ABSOLUTE AUTO 0.76 K/uL (0.20-0.90); MONOCYTES PERCENT AUTO 5.9 % (3.3-12.6); NEUTROPHILS ABSOLUTE AUTO 9.65 K/uL (1.0-7.6); NEUTROPHILS PERCENT AUTO 75.3 % (40.0-78.1); PLATELET COUNT,PLT 269 K/uL (130-375); RED BLOOD CELL COUNT 5.58 M/uL (4.14-5.76); WHITE BLOOD CELL COUNT,WBC 12.8 K/uL (3.2-11.0)
[2022-11-06 20:13] LABS: ALANINE AMINOTRANSFERASE,ALT 42 U/L (12-78); ALBUMIN 3.9 g/dL (3.4-5.0); ALKALINE PHOSPHATASE 199 U/L (46-116); ANION GAP 9.6 mmol/L (5.0-14.0); ASPARTATE AMNIOTRANSFERASE,AST 37 U/L (15-37); BILIRUBIN TOTAL 0.7 mg/dL (0.2-1.0); BLOOD UREA NITROGEN,BUN 14 mg/dL (7-18); CALCIUM 8.9 mg/dL (8.5-10.1); CARBON DIOXIDE,CO2 25 mmol/L (21-32); CHLORIDE,CL 107 mmol/L (100-108); CREATININE 1.1 mg/dL (0.8-1.3); EST CRCL DRUG DOSING (CG) 72.31 mL/min; ESTIMATED GFR 77 mL/min (>60); GLUCOSE RANDOM 83 mg/dL (74-106); MAGNESIUM 2.2 mg/dL (1.8-2.4); POTASSIUM,K 4.3 mmol/L (3.6-5.2); PROTEIN TOTAL,TP 7.8 g/dL (6.4-8.2); SODIUM,NA 142 mmol/L (140-148)
[2022-11-06 20:56] VITALS: BP 179/97; PULSE 102
== END 2022-11-06 21:11 | disposition home or self-care (01) ==
LOC: JP.ED 17:06
DX: G44.1 Vascular headache, not elsewhere classified (principal); R56.9 Unspecified convulsions; I25.10 Atherosclerotic heart disease of native coronary artery without angina pectoris; I25.2 Old myocardial infarction; F17.210 Nicotine dependence, cigarettes, uncomplicated; Z88.6 Allergy status to analgesic agent; Z88.5 Allergy status to narcotic agent
CPT/HCPCS: 36415; 70450; 80053; 83735; 85025; 99284

== ENCOUNTER 2023-01-26 18:49 | Emergency (ER) | payer OTHER ==
[2023-01-26 19:03] VITALS: BP 178/103; PULSE 112
== END 2023-01-26 20:00 | disposition left against medical advice (07) ==
LOC: JP.ED 18:49
DX: Z53.21 Procedure and treatment not carried out due to patient leaving prior to being seen by health care provider (principal)

== ENCOUNTER 2023-07-18 17:12 | Emergency (ER) | payer OTHER ==
[2023-07-18 17:37] VITALS: BP 135/82; PULSE 102
[2023-07-18 18:49] LABS: BASOPHILS ABSOLUTE AUTO 0.06 K/uL (0.00-0.10); BASOPHILS PERCENT AUTO 0.6 % (0.1-1.3); EOSINOPHILS ABSOLUTE AUTO 0.22 K/uL (0.00-0.40); EOSINOPHILS PERCENT AUTO 2.1 % (0.0-5.4); HEMATOCRIT 38.5 % (38.4-49.7); HEMOGLOBIN 11.9 g/dL (12.9-16.9); IMMATURE GRAN PERCENT AUTO 0.2 % (0.0-0.7); LYMPHOCYTES ABSOLUTE AUTO 2.37 K/uL (0.8-3.3); LYMPHOCYTES PERCENT AUTO 22.2 % (11.4-47.7); MEAN CORPUSCULAR HEMOGLOBIN 22.5 pg (31.6-35.5); MEAN CORPUSCULAR HGB CONC 30.9 g/dL (31.6-35.5); MEAN CORPUSCULAR VOLUME 72.6 fL (81.4-99.0); MONOCYTES ABSOLUTE AUTO 0.65 K/uL (0.20-0.90); MONOCYTES PERCENT AUTO 6.1 % (3.3-12.6); NEUTROPHILS ABSOLUTE AUTO 7.34 K/uL (1.0-7.6); NEUTROPHILS PERCENT AUTO 68.8 % (40.0-78.1); PLATELET COUNT,PLT 237 K/uL (130-375); WHITE BLOOD CELL COUNT,WBC 10.7 K/uL (3.2-11.0)
[2023-07-18 18:50] LABS: IMMATURE GRAN ABSOLUTE AUTO 0.02 K/uL (0.00-0.23)
[2023-07-18 19:14] LABS: A/G RATIO 0.9 (1.2-2.2); ALANINE AMINOTRANSFERASE,ALT 26 U/L (12-78); ALBUMIN 3.8 g/dL (3.4-5.0); ALKALINE PHOSPHATASE 150 U/L (46-116); ANION GAP 12.1 mmol/L (5.0-14.0); ASPARTATE AMNIOTRANSFERASE,AST 26 U/L (15-37); BILIRUBIN TOTAL 0.2 mg/dL (0.2-1.0); BLOOD UREA NITROGEN,BUN 17 mg/dL (7-18); CALCIUM 8.6 mg/dL (8.5-10.1); CARBON DIOXIDE,CO2 23 mmol/L (21-32); CHLORIDE,CL 107 mmol/L (100-108); CREATININE 0.9 mg/dL (0.8-1.3); EST CRCL DRUG DOSING (CG) 87.28 mL/min; ESTIMATED GFR 98 mL/min (>60); GLUCOSE RANDOM 86 mg/dL (74-106); POTASSIUM,K 4.1 mmol/L (3.6-5.2); PROTEIN TOTAL,TP 7.9 g/dL (6.4-8.2); SODIUM,NA 142 mmol/L (140-148)
== END 2023-07-18 21:41 | disposition home or self-care (01) ==
LOC: JP.ED 17:12
DX: H33.21 Serous retinal detachment, right eye (principal); I25.10 Atherosclerotic heart disease of native coronary artery without angina pectoris; I25.2 Old myocardial infarction; F17.210 Nicotine dependence, cigarettes, uncomplicated; Z88.6 Allergy status to analgesic agent; Z88.5 Allergy status to narcotic agent; Z79.899 Other long term (current) drug therapy; Z86.19 Personal history of other infectious and parasitic diseases; Z90.49 Acquired absence of other specified parts of digestive tract
CPT/HCPCS: 36415; 70450; 70480; 80053; 85025; 99284

== ENCOUNTER 2023-10-18 19:47 | Emergency (ER) | payer OTHER ==
[2023-10-18 20:04] VITALS: BP 149/85; PULSE 91
== END 2023-10-18 20:46 | disposition left against medical advice (07) ==
LOC: JP.ED 19:47
DX: S90.122A Contusion of left lesser toe(s) without damage to nail, initial encounter (principal); I25.10 Atherosclerotic heart disease of native coronary artery without angina pectoris; I25.2 Old myocardial infarction; F17.210 Nicotine dependence, cigarettes, uncomplicated; Z88.6 Allergy status to analgesic agent; Z88.5 Allergy status to narcotic agent; X58.XXXA Exposure to other specified factors, initial encounter
CPT/HCPCS: 99283

== ENCOUNTER 2024-06-03 15:44 | Emergency (ER) | payer MEDICAID, OTHER ==
[2024-06-03 17:23] VITALS: BP 124/66; PULSE 76
== END 2024-06-03 17:21 | disposition home or self-care (01) ==
LOC: JP.ED 15:44
DX: F41.0 Panic disorder [episodic paroxysmal anxiety] (principal); I25.2 Old myocardial infarction; I25.10 Atherosclerotic heart disease of native coronary artery without angina pectoris; F17.210 Nicotine dependence, cigarettes, uncomplicated; Z88.8 Allergy status to other drugs, medicaments and biological substances; Z91.030 Bee allergy status; Z88.6 Allergy status to analgesic agent; Z79.899 Other long term (current) drug therapy
CPT/HCPCS: 93005; 93010; 99283; 99284

== ENCOUNTER 2024-07-30 14:48 | Emergency (ER) | payer MEDICAID | END 2024-07-30 15:38 | disposition left against medical advice (07) | LOC: JP.ED 14:48 | DX: Z53.21 Procedure and treatment not carried out due to patient leaving prior to being seen by health care provider (principal) ==

== ENCOUNTER 2024-08-03 09:02 | Day surgery (SDC) | payer MEDICAID ==
[~2024-08-03 09:02] MED LIST: Lactated Ringers 1,000 ML IV SCH
[2024-08-03] MEDS ORDERED: fentaNYL 100 MCG/2 ML SDV ONE (09:30)
[2024-08-03] MEDS ORDERED: Propofol 200 MG/20 ML SDV ONE (09:30)
[2024-08-03] MEDS: Lactated Ringers 1,000 ML IV SCH (09:42)
[2024-08-03 12:03] VITALS: BP 159/93; PULSE 86
== END 2024-08-03 12:06 | disposition home or self-care (01) ==
LOC: JP.SDS 09:02
PROVIDERS: ATTEND Surgery
DX: K22.70 Barrett's esophagus without dysplasia (principal); I25.10 Atherosclerotic heart disease of native coronary artery without angina pectoris; F17.200 Nicotine dependence, unspecified, uncomplicated; D64.9 Anemia, unspecified
CPT/HCPCS: 00731; 43239; 88305; J2704; J3010; J7120

== ENCOUNTER 2024-08-17 19:41 | Emergency (ER) | payer MEDICAID ==
[2024-08-17 19:59] VITALS: BP 146/74; PULSE 109
== END 2024-08-17 21:14 | disposition home or self-care (01) ==
LOC: JP.ED 19:41
DX: S90.32XA Contusion of left foot, initial encounter (principal); I25.10 Atherosclerotic heart disease of native coronary artery without angina pectoris; I25.2 Old myocardial infarction; Z79.899 Other long term (current) drug therapy; Z88.8 Allergy status to other drugs, medicaments and biological substances; Z88.5 Allergy status to narcotic agent; Z88.6 Allergy status to analgesic agent; Z91.030 Bee allergy status; W55.12XA Struck by horse, initial encounter
CPT/HCPCS: 73610-26-LT; 73610-LT; 73630-26-LT; 73630-LT; 99283

== ENCOUNTER 2024-08-26 12:34 | Emergency (ER) | payer MEDICAID ==
[2024-08-26 14:14] LABS: ALANINE AMINOTRANSFERASE,ALT 32 U/L (12-78); ALBUMIN 3.6 g/dL (3.4-5.0); ALKALINE PHOSPHATASE 119 U/L (46-116); ANION GAP 5.9 mmol/L (5.0-14.0); ASPARTATE AMNIOTRANSFERASE,AST 30 U/L (15-37); BILIRUBIN TOTAL 0.4 mg/dL (0.2-1.0); BLOOD UREA NITROGEN,BUN 18 mg/dL (7-18); CALCIUM 9.4 mg/dL (8.5-10.1); CARBON DIOXIDE,CO2 29 mmol/L (21-32); CHLORIDE,CL 106 mmol/L (100-108); CREATININE 1.1 mg/dL (0.8-1.3); EST CRCL DRUG DOSING (CG) 70.52 mL/min; ESTIMATED GFR 76 mL/min (>60); GLUCOSE RANDOM 90 mg/dL (74-106); POTASSIUM,K 4.5 mmol/L (3.6-5.2); PROTEIN TOTAL,TP 7.3 g/dL (6.4-8.2); SODIUM,NA 141 mmol/L (140-148); TROPONIN I HIGH SENSITIVITY 7.8 pg/mL (<=60.3)
[2024-08-26 14:57] VITALS: BP 156/62; PULSE 51
== END 2024-08-26 15:19 | disposition home or self-care (01) ==
LOC: JP.ED 12:34
DX: R00.1 Bradycardia, unspecified (principal); I25.2 Old myocardial infarction; I10 Essential (primary) hypertension; Z79.899 Other long term (current) drug therapy; Z88.8 Allergy status to other drugs, medicaments and biological substances; Z88.5 Allergy status to narcotic agent; Z88.6 Allergy status to analgesic agent; Z91.030 Bee allergy status
CPT/HCPCS: 36415; 80053; 84484; 93005; 93010; 99283; 99284

== ENCOUNTER 2024-09-15 06:59 | Day surgery (SDC) | payer MEDICAID ==
[~2024-09-15 06:59] MED LIST changes: +ceFAZolin 2 GM in Premix Bag 1 BAG IV ONE
[2024-09-15] MEDS ORDERED: Propofol 200 MG/20 ML SDV ONE (07:28)
[2024-09-15] MEDS ORDERED: fentaNYL 50 MCG/ML SDV ONE (07:29)
[2024-09-15] MEDS ORDERED: Midazolam 1 MG/ML 2 ML SDV ONE (07:29)
[2024-09-15] MEDS: Lactated Ringers 1,000 ML IV SCH (08:00)
[2024-09-15] MEDS ORDERED: Lidocaine 1% 2 ML ONE (08:17)
[2024-09-15 09:51] VITALS: BP 149/76; PULSE 65
== END 2024-09-15 10:00 | disposition home or self-care (01) ==
LOC: JP.SDS 06:59
PROVIDERS: ATTEND Surgery
DX: Z12.11 Encounter for screening for malignant neoplasm of colon (principal); R13.10 Dysphagia, unspecified; D12.3 Benign neoplasm of transverse colon; K22.70 Barrett's esophagus without dysplasia; I10 Essential (primary) hypertension; I25.10 Atherosclerotic heart disease of native coronary artery without angina pectoris; Z80.0 Family history of malignant neoplasm of digestive organs
CPT/HCPCS: 00813-QZ; C1726; J2003; J2250; J2704; J3010; J7120

== ENCOUNTER 2024-09-16 08:07 | Day surgery (SDC) | payer MEDICAID ==
[~2024-09-16 08:07] MED LIST changes: -Lactated Ringers 1,000 ML IV SCH; +Midazolam 1 MG/ML 2 ML SDV ONE; +Propofol 200 MG/20 ML SDV ONE; -ceFAZolin 2 GM in Premix Bag 1 BAG IV ONE; +fentaNYL 100 MCG/2 ML SDV ONE
[2024-09-16] MEDS: Lactated Ringers 1,000 ML IV SCH (08:43)
[2024-09-16] MEDS: ceFAZolin 2 GM in Premix Bag 1 BAG IV ONE (10:05)
[2024-09-16] MEDS ORDERED: Propofol 200 MG/20 ML SDV ONE ×2 (10:45→10:56)
[2024-09-16 11:29] LABS: HEMATOCRIT 39.5 % (38.4-49.7); HEMOGLOBIN 12.6 g/dL (12.9-16.9); MEAN CORPUSCULAR HEMOGLOBIN 25.7 pg (31.6-35.5); MEAN CORPUSCULAR HGB CONC 31.9 g/dL (31.6-35.5); MEAN CORPUSCULAR VOLUME 80.4 fL (81.4-99.0); RED BLOOD CELL COUNT 4.91 M/uL (4.14-5.76)
[2024-09-16 11:50] VITALS: PULSE 85
[2024-09-16 12:01] LABS: A/G RATIO 1.1 (1.2-2.2); ALANINE AMINOTRANSFERASE,ALT 47 U/L (12-78); ALBUMIN 3.1 g/dL (3.4-5.0); ALKALINE PHOSPHATASE 104 U/L (46-116); ASPARTATE AMNIOTRANSFERASE,AST 39 U/L (15-37); BILIRUBIN TOTAL 0.4 mg/dL (0.2-1.0); BLOOD UREA NITROGEN,BUN 19 mg/dL (7-18); CALCIUM 8.7 mg/dL (8.5-10.1); CARBON DIOXIDE,CO2 27 mmol/L (21-32); CHLORIDE,CL 107 mmol/L (100-108); CREATININE 0.8 mg/dL (0.8-1.3); ESTIMATED GFR 101 mL/min (>60); FERRITIN 211 ng/ml (8-388); GLUCOSE RANDOM 98 mg/dL (74-106); POTASSIUM,K 4.1 mmol/L (3.6-5.2); SODIUM,NA 139 mmol/L (140-148)
[2024-09-16 12:08] VITALS: BP 177/98
[2024-09-16 12:09] LABS: ANION GAP 9.1 mmol/L (5.0-14.0)
[2024-09-16] MEDS: Lidocaine 1% with EPINEPHrine 1:100,000 50 ML MDV ONE (12:16)
[2024-09-16] MEDS: Bupivacaine 0.5% 50 ML MDV ONE (12:16)
[2024-09-16 12:26] LABS: IRON,FE 62 ug/dL (65-175); PERCENT FE SATURATION 21 % (20-55); TOTAL IRON BINDING CAPACITY 292 ug/dl (250-450)
[2024-09-19 01:39] LABS: THYROID STIMU IMMUNOGLOB TSI <0.10 IU/L (<=0.54)
== END 2024-09-16 12:10 | disposition home or self-care (01) ==
LOC: JP.SDS 08:07
PROVIDERS: ATTEND Surgery
DX: L72.0 Epidermal cyst (principal); I10 Essential (primary) hypertension; K21.9 Gastro-esophageal reflux disease without esophagitis; I25.10 Atherosclerotic heart disease of native coronary artery without angina pectoris
CPT/HCPCS: 00532-QZ; 36415; 36591; 71045; 71045-26; 76000; 80053; 82728; 83550; 84445; 85027; 88304; C1788; C1894; J0665; J0690; J1642; J2250; J2704; J3010; J7120

== ENCOUNTER 2024-09-30 16:09 | Emergency (ER) | payer MEDICAID ==
[2024-09-30 18:22] LABS: BASOPHILS ABSOLUTE AUTO 0.05 K/uL (0.00-0.10); BASOPHILS PERCENT AUTO 0.5 % (0.1-1.3); EOSINOPHILS ABSOLUTE AUTO 0.13 K/uL (0.00-0.40); EOSINOPHILS PERCENT AUTO 1.2 % (0.0-5.4); HEMATOCRIT 42.3 % (38.4-49.7); HEMOGLOBIN 13.6 g/dL (12.9-16.9); IMMATURE GRAN ABSOLUTE AUTO 0.04 K/uL (0.00-0.23); IMMATURE GRAN PERCENT AUTO 0.4 % (0.0-0.7); LYMPHOCYTES ABSOLUTE AUTO 2.37 K/uL (0.8-3.3); LYMPHOCYTES PERCENT AUTO 22.3 % (11.4-47.7); MEAN CORPUSCULAR HEMOGLOBIN 26.5 pg (31.6-35.5); MEAN CORPUSCULAR HGB CONC 32.2 g/dL (31.6-35.5); MEAN CORPUSCULAR VOLUME 82.5 fL (81.4-99.0); MONOCYTES ABSOLUTE AUTO 0.61 K/uL (0.20-0.90); MONOCYTES PERCENT AUTO 5.7 % (3.3-12.6); NEUTROPHILS ABSOLUTE AUTO 7.45 K/uL (1.0-7.6); NEUTROPHILS PERCENT AUTO 69.9 % (40.0-78.1); PLATELET COUNT,PLT 189 K/uL (130-375); RED BLOOD CELL COUNT 5.13 M/uL (4.14-5.76); WHITE BLOOD CELL COUNT,WBC 10.7 K/uL (3.2-11.0)
[2024-09-30] MEDS: Sodium Chloride 0.9% 1,000 ML IV SCH (18:29)
[2024-09-30 18:32] LABS: A/G RATIO 1.1 (1.2-2.2); ALANINE AMINOTRANSFERASE,ALT 45 U/L (12-78); ALBUMIN 3.4 g/dL (3.4-5.0); ALKALINE PHOSPHATASE 127 U/L (46-116); ANION GAP 9.9 mmol/L (5.0-14.0); ASPARTATE AMNIOTRANSFERASE,AST 28 U/L (15-37); BILIRUBIN TOTAL 0.3 mg/dL (0.2-1.0); BLOOD UREA NITROGEN,BUN 26 mg/dL (7-18); CALCIUM 8.9 mg/dL (8.5-10.1); CARBON DIOXIDE,CO2 28 mmol/L (21-32); CHLORIDE,CL 104 mmol/L (100-108); CREATININE 1.1 mg/dL (0.8-1.3); EST CRCL DRUG DOSING (CG) 70.52 mL/min; ESTIMATED GFR 76 mL/min (>60); GLUCOSE RANDOM 100 mg/dL (74-106); POTASSIUM,K 3.8 mmol/L (3.6-5.2); PROTEIN TOTAL,TP 6.5 g/dL (6.4-8.2); SODIUM,NA 142 mmol/L (140-148)
[2024-09-30 20:03] VITALS: BP 159/100; PULSE 75
[2024-09-30 20:05] LABS: APPEARANCE,URINE CLEAR (CLEAR); BILIRUBIN,URINE NEGATIVE (NEGATIVE); COLOR,URINE YELLOW (YELLOW); GLUCOSE,URINE NEGATIVE (NEGATIVE); KETONES,URINE NEGATIVE (NEGATIVE); LEUKOCYTE ESTERASE,URINE NEGATIVE (NEGATIVE); NITRITE,URINE NEGATIVE (NEGATIVE); OCCULT BLOOD,URINE NEGATIVE (NEGATIVE); PROTEIN,URINE NEGATIVE (NEGATIVE); UROBILINOGEN,URINE 0.2 EU/dL (0.2-1.0)
[2024-09-30 20:14] LABS: AMORPHOUS SEDIMENT,URINE NOT SEEN; BACTERIA,URINE NOT SEEN; EPITHELIAL CELLS,URINE RARE; MUCUS,URINE NOT SEEN; RBC,URINE 0-5 (0-5); WBC,URINE 0-5 (0-5)
== END 2024-09-30 20:40 | disposition home or self-care (01) ==
LOC: JP.ED 16:09
DX: R10.31 Right lower quadrant pain (principal); E86.0 Dehydration; I25.2 Old myocardial infarction; F17.210 Nicotine dependence, cigarettes, uncomplicated; Z86.16 Personal history of COVID-19; Z98.84 Bariatric surgery status; Z90.49 Acquired absence of other specified parts of digestive tract; Z88.5 Allergy status to narcotic agent; Z88.6 Allergy status to analgesic agent; Z88.8 Allergy status to other drugs, medicaments and biological substances; Z91.030 Bee allergy status; Z79.899 Other long term (current) drug therapy
CPT/HCPCS: 36415; 74176; 80053; 81001; 85025; 96360; 99284; J7030

== ENCOUNTER 2024-11-16 16:59 | Emergency (ER) | payer MEDICAID ==
[2024-11-16] MEDS: EPINEPHrine 1 MG/ML SDV IM ONE (17:00)
[2024-11-16] MEDS: diphenhydrAMINE 50 MG/ML SDV IVPUSH ONE (17:15)
[2024-11-16] MEDS: Prochlorperazine 10 MG/2 ML SDV IVPUSH ONE (17:15)
[2024-11-16 17:19] LABS: BASE EXCESS VENOUS 2.3 mm/L; BASOPHILS ABSOLUTE AUTO 0.04 K/uL (0.00-0.10); BASOPHILS PERCENT AUTO 0.4 % (0.1-1.3); BICARBONATE,VENOUS 25.0 mmol/L; EOSINOPHILS ABSOLUTE AUTO 0.07 K/uL (0.00-0.40); EOSINOPHILS PERCENT AUTO 0.8 % (0.0-5.4); IMMATURE GRAN ABSOLUTE AUTO 0.03 K/uL (0.00-0.23); IMMATURE GRAN PERCENT AUTO 0.3 % (0.0-0.7); LYMPHOCYTES ABSOLUTE AUTO 2.84 K/uL (0.8-3.3); LYMPHOCYTES PERCENT AUTO 31.9 % (11.4-47.7); MONOCYTES ABSOLUTE AUTO 0.73 K/uL (0.20-0.90); MONOCYTES PERCENT AUTO 8.2 % (3.3-12.6); NEUTROPHILS ABSOLUTE AUTO 5.19 K/uL (1.0-7.6); NEUTROPHILS PERCENT AUTO 58.4 % (40.0-78.1); O2 SATURATION VENOUS 87.6; OXYHEMOGLOBIN 82.8 %; PCO2 VENOUS 34.2 mm/Hg; PH,VENOUS 7.477 (7.350-7.450); PLATELET COUNT,PLT 171 K/uL (130-375); PO2 VENOUS 52.7 mm/Hg; RED BLOOD CELL COUNT 4.86 M/uL (4.14-5.76); TOTAL HEMOGLOBIN 14.9 g/dL (13.5-18.0); WHITE BLOOD CELL COUNT,WBC 8.9 K/uL (3.2-11.0)
[2024-11-16 17:39] LABS: BLOOD UREA NITROGEN,BUN 19.0 mg/dL (7-18); CARBON DIOXIDE,CO2 26.0 mmol/L (21-32); CHLORIDE,CL 107.0 mmol/L (100-108); CREATININE 0.8 mg/dL (0.8-1.3); EST CRCL DRUG DOSING (CG) 90.66 mL/min; ESTIMATED GFR 101.0 mL/min (>60); GLUCOSE RANDOM 91.0 mg/dL (74-106); POTASSIUM,K 3.5 mmol/L (3.6-5.2); SODIUM,NA 143.0 mmol/L (140-148)
[2024-11-16 18:55] VITALS: BP 165/94; PULSE 84
[2024-11-16 19:02] LABS: APPEARANCE,URINE CLEAR (CLEAR); GLUCOSE,URINE NEGATIVE (NEGATIVE); OCCULT BLOOD,URINE NEGATIVE (NEGATIVE)
[2024-11-16 19:06] LABS: AMPHETAMINES SCREEN, URINE NEGATIVE (NEGATIVE); METHADONE SCREEN, URINE NEGATIVE (NEGATIVE); METHAMPHETAMINES SCREEN, URINE NEGATIVE (NEGATIVE); OXYCODONE SCREEN,URINE NEGATIVE (NEGATIVE); PROPOXYPHENE SCREEN,URINE NEGATIVE (NEGATIVE); THC SCREEN,URINE 50 NG/ML NEGATIVE (NEGATIVE)
[2024-11-16 19:10] LABS: SQUAMOUS EPITHELIAL CELLS,UR NOT SEEN /HPF; UROTHELIAL CELLS,URINE NOT SEEN /HPF
== END 2024-11-16 19:15 | disposition home or self-care (01) ==
LOC: JP.ED 16:59
DX: T63.441A Toxic effect of venom of bees, accidental (unintentional), initial encounter (principal); Z88.5 Allergy status to narcotic agent; Z91.030 Bee allergy status; Z79.899 Other long term (current) drug therapy; Z90.49 Acquired absence of other specified parts of digestive tract
CPT/HCPCS: 36415; 80048; 80305; 80307; 81001; 82803; 85025; 96361; 96372; 96374; 96375; 99284; J0169; J0780; J1200; J7030

== ENCOUNTER 2024-12-05 16:53 | Emergency (ER) | payer MEDICAID, OTHER ==
[2024-12-05 17:28] VITALS: BP 169/83
[2024-12-05 17:44] VITALS: PULSE 59
== END 2024-12-05 18:44 | disposition home or self-care (01) ==
LOC: JP.ED 16:53
DX: R07.89 Other chest pain (principal); I25.2 Old myocardial infarction; Z86.16 Personal history of COVID-19; Z90.49 Acquired absence of other specified parts of digestive tract; Z98.84 Bariatric surgery status; Z88.5 Allergy status to narcotic agent; Z88.8 Allergy status to other drugs, medicaments and biological substances; Z91.030 Bee allergy status; Z79.899 Other long term (current) drug therapy
CPT/HCPCS: 36415; 84484; 99285

== ENCOUNTER 2024-12-09 07:53 | Day surgery (SDC) | payer MEDICAID, OTHER ==
[2024-12-09] MEDS ORDERED: fentaNYL 50 MCG/ML SDV ONE (08:28)
[2024-12-09] MEDS ORDERED: Propofol 200 MG/20 ML SDV ONE (08:28)
[2024-12-09] MEDS: Lactated Ringers 1,000 ML IV SCH (09:59)
[2024-12-09] MEDS: diphenhydrAMINE 50 MG/ML SDV IVPUSH ONE (10:38)
[2024-12-09 11:09] VITALS: BP 143/89; PULSE 63
== END 2024-12-09 11:19 | disposition home or self-care (01) ==
LOC: JP.SDS 07:53
PROVIDERS: ATTEND Surgery
DX: K29.50 Unspecified chronic gastritis without bleeding (principal); K21.00 Gastro-esophageal reflux disease with esophagitis, without bleeding; I10 Essential (primary) hypertension; Z98.84 Bariatric surgery status; Z79.899 Other long term (current) drug therapy
CPT/HCPCS: 00731; 43239; C1751; J1200; J2704; J3010; J7120; 88305

== ENCOUNTER 2025-03-18 09:29 | Emergency (ER) | payer MEDICAID ==
[2025-03-18] MEDS: methylPREDNISolone Sodium Succinate 40 MG/1 ML SDV IM ONE (10:13)
[2025-03-18] MEDS: diphenhydrAMINE 50 MG/ML SDV IM ONE (10:15)
[2025-03-18 10:26] VITALS: BP 157/90; PULSE 109
== END 2025-03-18 11:18 | disposition home or self-care (01) ==
LOC: JP.ED 09:29
DX: T78.40XA Allergy, unspecified, initial encounter (principal); F17.200 Nicotine dependence, unspecified, uncomplicated; K21.9 Gastro-esophageal reflux disease without esophagitis; Z91.030 Bee allergy status; Z88.8 Allergy status to other drugs, medicaments and biological substances; Z88.5 Allergy status to narcotic agent; Z88.6 Allergy status to analgesic agent; Z90.49 Acquired absence of other specified parts of digestive tract; Z90.89 Acquired absence of other organs; Z79.899 Other long term (current) drug therapy
CPT/HCPCS: 96372; 99283; J1200; J2919

== ENCOUNTER 2025-03-29 19:52 | Emergency (ER) | payer MEDICAID ==
[2025-03-29 20:06] VITALS: BP 120/65
[2025-03-29] MEDS: Ketorolac 30 MG/ML SDV IM ONE (20:20)
[2025-03-29 21:09] VITALS: PULSE 87
== END 2025-03-29 21:09 | disposition home or self-care (01) ==
LOC: JP.ED 19:52
DX: S93.402A Sprain of unspecified ligament of left ankle, initial encounter (principal); S63.502A Unspecified sprain of left wrist, initial encounter; K21.9 Gastro-esophageal reflux disease without esophagitis; Z91.030 Bee allergy status; Z88.8 Allergy status to other drugs, medicaments and biological substances; Z88.5 Allergy status to narcotic agent; Z90.49 Acquired absence of other specified parts of digestive tract; Z90.89 Acquired absence of other organs; Z79.899 Other long term (current) drug therapy; W10.8XXA Fall (on) (from) other stairs and steps, initial encounter
CPT/HCPCS: 73110; 73610; 96372; 99283; J1885